=== PATIENT | female | born 1990 | race African-American/Black ===

== ENCOUNTER 2020-09-17 09:30 | Emergency (ER) | payer BC ==
[~2020-09-17] VITALS: Ht 170.2 cm; Wt 102.1 kg
[2020-09-17] MEDS ORDERED: INTESTINEX680 M1 PO (11:57)
[2020-09-17] MEDS ORDERED: DUI500 PO (11:57)
== END 2020-09-17 12:09 | disposition home or self-care (01) ==
LOC: ER 09:30
DX: S61.210A Laceration without foreign body of right index finger without damage to nail, initial encounter (principal); L03.011 Cellulitis of right finger; W25.XXXA Contact with sharp glass, initial encounter; Y93.G1 Activity, food preparation and clean up; Y92.010 Kitchen of single-family (private) house as the place of occurrence of the external cause; Y99.8 Other external cause status